=== PATIENT | male | born 1960 | race Caucasian/White ===

== ENCOUNTER 2025-07-25 06:15 | Day surgery (SDC) | payer BC ==
[2025-07-25] MEDS: Lactated Ringers 1,000 ML IV SCH (06:00)
[~2025-07-25 06:15] MED LIST: Sodium Chloride 0.9% 10 ML Syringe FLUSH PRN; Sodium Chloride 0.9% 10 ML Syringe FLUSH SCH
[2025-07-25] MEDS: oxyCODONE ER 10 MG TAB.ER PO ONE (06:20)
[2025-07-25] MEDS ORDERED: Midazolam 1 MG/ML 2 ML SDV ONE (06:40)
[2025-07-25] MEDS ORDERED: propofoL 500 MG/50 ML 50 ML ONE (06:40)
[2025-07-25] MEDS ORDERED: Ondansetron 4 MG/2 ML SDV ONE (06:40)
[2025-07-25] MEDS ORDERED: Dexamethasone 4 MG/ML 5 ML MDV ONE (07:39)
[2025-07-25] MEDS ORDERED: dexmedeTOMIDine HCl 200 MCG/2 ML SDV ONE (07:45)
[2025-07-25] MEDS ORDERED: Ropivacaine 0.5% 5 MG/ML 30 ML SDV ONE (07:45)
[2025-07-25] MEDS ORDERED: Lactated Ringers 1,000 ML ONE (07:54)
[2025-07-25] MEDS ORDERED: fentaNYL 100 MCG/2 ML SDV IVPUSH PRN (08:04)
[2025-07-25] MEDS ORDERED: Ketorolac 30 MG/ML SDV IVPUSH PRN (08:04)
[2025-07-25] MEDS: Morphine 8 MG, EPINEPHrine 0.3 MG, Cefuroxime 750 MG, Ketorolac 30 MG, Sodium Chloride ... PRN (08:16)
[2025-07-25] MEDS: Triamcinolone Acetonide 40 MG/ML 1 ML SDV ONE (08:41)
[2025-07-25] MEDS: Ondansetron 4 MG/2 ML SDV IVPUSH PRN (09:40)
[2025-07-25] MEDS: droPERidol 2.5 MG/ML SDV IVPUSH ONE (12:16)
[2025-07-29] MEDS ORDERED: Morphine 8 MG, EPINEPHrine 0.3 MG, Cefuroxime 750 MG, Ketorolac 30 MG, Sodium Chloride ... PRN (06:00)
== END 2025-07-25 12:30 | disposition home or self-care (01) ==
LOC: JD.SDS 06:15
PROVIDERS: ATTEND Orthopaedic Surgery
DX: M17.0 Bilateral primary osteoarthritis of knee (principal); E78.00 Pure hypercholesterolemia, unspecified; Z79.82 Long term (current) use of aspirin; Z79.899 Other long term (current) drug therapy
CPT/HCPCS: 73560-26-LT; 73560-LT; 97116-GP; 97161-GP; A9270-GY; J0169; J0665; J0690; J0697; J1100; J1790; J1885; J2250; J2272; J2405; J2704; J2795; J3301; J3373; J7120